=== PATIENT | female | born 1955 | race American Indian/Alaskan Native ===

== ENCOUNTER → 2018-02-25 11:05 | Outpatient (CLI) | payer OTHER, SELFPAY ==
--- NOTE | 2018-03-04 16:31 | PM.PFT.1 ---
Pulmonary Function Test Referral & Results Date Patient Seen: 02/25/18 Requesting provider: Kathleen Butler Indication: Asthma Results: The spirometry demonstrates an FVC of 3.09 L which is 97% of predicted. The FEV1 was measured at 2.31 L which is 95% of predicted. The FEV1/FVC ratio was 75 which is 97% of predicted. Following the administration of bronchodilator there was a 12% improvement in FEV1 and a 50% improvement in FEF 25-75%. Lung volumes show an SVC of 4.39 L which is 147% of predicted. The diffusing capacity was measured at 21.76 which is 89% of predicted. The maximum voluntary ventilation was normal Interpretation: This study demonstrates normal pulmonary function
== END ==
PROVIDERS: Visit Provider Family Medicine
DX: J45.909 Unspecified asthma, uncomplicated (principal)
CPT/HCPCS: 94010; 94060; 94726; 94729

== ENCOUNTER 2023-07-17 20:24 | Emergency (ER) | payer OTHER, SELFPAY ==
[2023-07-17 20:28] VITALS: BP 133/64; PULSE 81; RESP 18; TEMP 36.7; O2SAT 99; BMI 39.4
--- NOTE | 2023-07-17 20:30 | ED_ITS ---
HPI - Extremity Injury (Lower) General Chief Complaint: Extremity Injury, Lower Stated Complaint: fall Time Seen by Provider: 07/17/23 20:30 History of Present Illness HPI Narrative: 67-year-old female presents by EMS for right ankle pain and injury. Patient was climbing some steps when the steps gave out and she fell, twisting her ankle. She denies hitting her head or any other injury. Patient was placed in his supportive splint by EMS and transported. Related Data Home Medications Medication Instructions Recorded Confirmed ALBUTEROL SULFATE (Ventolin / 0 INH PRN ##0 05/15/07 Proventil) OMEPRAZOLE 10 mg PO Q DAY ##0 05/15/07 Allergies Allergy/AdvReac Type Severity Reaction Status Date / Time codeine Allergy Mild Vomiting Verified 07/17/23 20:33 Review of Systems Review of Systems Narrative: Negative except as noted above Exam Initial Vital Signs Initial Vital Signs: Vital Signs Temperature 98.1 F 07/17/23 20:28 Pulse Rate 81 07/17/23 20:28 Respiratory Rate 18 07/17/23 20:28 Blood Pressure 133/64 07/17/23 20:28 Pulse Oximetry 99 07/17/23 20:28 Oxygen Delivery Method Room Air 07/17/23 20:28 Const: Awake, alert, no acute distress, nontoxic appearing Cardiac: regular rate, regular rhythm RESP: unlabored, clear bilaterally, no wheezing GI: Atraumatic, soft, nontender, nondistended, no rebound, no guarding MSK: Swelling left lateral ankle, able to wiggle toes. Skin: Warm, Dry, intact, no rashes Neuro: AO x3, CN II-XII grossly intact, moves all extremities Course Orders Ordered: Discontinued Medications Ibuprofen (Ibuprofen 400 Mg Tablet) 400 mg PO NOW ONE Stop: 07/17/23 20:31 Last Admin: 07/17/23 20:35 Dose: 400 mg Documented By: VANDANA Oxycodone/Acetaminophen (Oxycodone/Acetaminophen 5/325 Tablet) 1 tab PO NOW ONE Stop: 07/17/23 20:31 Last Admin: 07/17/23 20:36 Dose: 1 tab Documented By: VANDANA Vital Signs Vital signs: Vital Signs - 8 hr 07/17/23 20:28 07/17/23 20:40 07/17/23 20:42 Temperature 98.1 F Pulse Rate 81 77 Pulse Rate [Right Dorsalis Pedis] 80 Respiratory Rate 18 Blood Pressure 133/64 Pulse Oximetry 99 99 Oxygen Delivery Method Room Air 07/17/23 21:00 Temperature Pulse Rate 80 Pulse Rate [Right Dorsalis Pedis] Respiratory Rate Blood Pressure Pulse Oximetry 100 Oxygen Delivery Method Room Air MDM - Extremity Injury (Lower) Differential Diagnosis Differential diagnosis: Likely ankle sprain and strain, acute internal derangement of knee and fracture of femur Imaging Data Extremity x-ray #1: Radiologist's Impression: PROCEDURE: XR ANKLE RT MIN 3V INDICATIONS: GLF, ANKLE PAIN/SWELLING LATERAL TECHNIQUE: 3 views of the ankle were acquired. COMPARISON: None. FINDINGS: Bones: No dislocations. Ankle mortise is normally aligned. No suspicious bony lesions. There is a transverse fracture partially visualized at the base of the 5th metatarsal bone, seen only on the lateral view. Soft tissues: No tibiotalar joint effusion. Achilles tendon appears normal. IMPRESSION: Acute transverse fracture at the base of the 5th metatarsal bone. Dictated by: Isauro Guaman M.D. on 07/17/2023 at 20:55 Approved by: Isauro Guaman M.D. on 07/17/2023 at 20:56 [facility] Narrative Medical decision making narrative: Ground level fall with right ankle injury. Neurovascularly intact. X-rays show a normal ankle joint, however patient does have fracture at base of 5th metatarsal concerning for possible Lange fracture. Patient placed in splint, given instructions to be nonweightbearing status. Given crutches. Patient has multiple family members at bedside who can help her at home. Pain medication sent to pharmacy of choice. Orthopedic referral provided. ED return precautions discussed at bedside. Patient expressed understanding of the plan and is in agreement at this time. All questions answered at the time of discharge. Discharge Plan Departure Patient Disposition: Home Clinical Impression: Fracture of fifth metatarsal bone of right foot Qualifiers: Encounter type: initial encounter Fracture type: closed Fracture alignment: nondisplaced Qualified Code(s): S92.354A - Nondisplaced fracture of fifth metatarsal bone, right foot, initial encounter for closed fracture Instructions: DI for Foot Fracture Activity Restrictions/Additional Instructions: Wear your splint at all times. Use crutches to get around, do not bear weight on your right foot unless otherwise specified by Orthopedic surgery. Take Tylenol and Motrin for pain, elevate your extremity above heart level whenever you were at rest to help prevent swelling. A short course of pain medications has been sent to your pharmacy Prescriptions: No Action ALBUTEROL SULFATE (Ventolin / Proventil) 0 INH PRN Qty: 0 OMEPRAZOLE 10 mg PO Q DAY Qty: 0 Referrals: Frank Martel MD [Physician] - Miscellaneous,MD Milagro [Primary Care Provider] - Stand Alone Forms: Patient Portal/API
[2023-07-17] MEDS: IBUPROFEN 400 MG TABLET PO (20:35)
[2023-07-17] MEDS: OXYCODONE/ACETAMINOPHEN 5/325 TABLET 1 TAB PO (20:36)
[2023-07-17 20:40] VITALS: PULSE 80
[2023-07-17 20:42] VITALS: PULSE 77; O2SAT 99
[2023-07-17 21:00] VITALS: PULSE 80; O2SAT 100
== END 2023-07-17 21:40 | disposition home or self-care (01) ==
PROVIDERS: Emergency Provider Emergency Medicine
DX: S92.354A Nondisplaced fracture of fifth metatarsal bone, right foot, initial encounter for closed fracture (principal); X50.1XXA Overexertion from prolonged static or awkward postures, initial encounter
CPT/HCPCS: 29515; 73610; 99283

== ENCOUNTER 2023-07-28 12:05 | Emergency (ER) | payer OTHER, SELFPAY ==
[2023-07-28] VITALS (15 sets, daily range): BP systolic 126–145; BP diastolic 55–65; PULSE 75–85; RESP 21–47; TEMP 36.9; O2SAT 93–100; BMI 42.5
--- NOTE | 2023-07-28 12:15 | DI.CT.S_ITS ---
PROCEDURE: CT STROKE INDICATIONS: Positive BE-FAST, Stroke symptoms TECHNIQUE: Noncontrast 4.5 mm thick angled axial sections acquired from the foramen magnum to the vertex, with coronal reformats. For radiation dose reduction, the following was used: automated exposure control, adjustment of mA and/or kV according to patient size. COMPARISON: None. FINDINGS: Image quality: Diagnostic. CSF spaces: Basal cisterns are patent. No extra-axial fluid collections. The ventricles are symmetric in size and shape. Brain: There is subtle hypodensity in the posterior aspect of left No intracranial bleeds or masses. There is cerebral volume loss for age. There is intracranial internal carotid artery atherosclerosis. Skull and face: Calvarium and visualized facial bones appear intact, without suspicious lesions. Sinuses: Visualized sinuses and mastoids are clear. IMPRESSION: Hypodensity in the left basal ganglia suspicious for late acute or subacute infarct. The result was discussed with Dr. mejia prior to dictation. This study fulfills neurological imaging criteria for inclusion or exclusion of acute stroke therapies based on available published neurological guidelines. Dictated by: Milla Ocampo M.D. on 07/28/2023 at 12:19 Approved by: Milla Ocampo M.D. on 07/28/2023 at 12:22
--- NOTE | 2023-07-28 12:15 | DI.RAD.S_ITS ---
PROCEDURE: XR CHEST 1V INDICATIONS: Possible stroke TECHNIQUE: One view of the chest was acquired. COMPARISON: None. FINDINGS: Surgical changes and devices: None. Lungs and pleura: Mild pulmonary vascular congestion is noted. No definite focal infiltrate. No pleural effusions or pneumothorax. Mediastinum: Tortuous thoracic aorta is seen. Heart size is enlarged. Bones and chest wall: No suspicious bony lesions. Overlying soft tissues appear unremarkable. IMPRESSION: Cardiomegaly and mild congestion. No definite focal infiltrate. No pleural effusion or pneumothorax. Dictated by: Steven Greenwood M.D. on 07/28/2023 at 13:05 Approved by: Steven Greenwood M.D. on 07/28/2023 at 13:10
--- NOTE | 2023-07-28 12:16 | DI.CT.S_ITS ---
PROCEDURE: CT ANGIO HEAD AND NECK INDICATIONS: stroke TECHNIQUE: After the administration of intravenous contrast, 1 mm thick sections acquired from the aortic arch through the [place] of [place]. 3-dimensional uxlulox-qajkuchbk-uxdsnsyrtd (MIP) and/or volume rendering reformats were acquired of the central intracranial vasculature and neck separately. For radiation dose reduction, the following was used: automated exposure control, adjustment of mA and/or kV according to patient size. COMPARISON: [facility], CT, CT STROKE, 07/28/2023, 12:01. FINDINGS: Image quality: Diagnostic. BRAIN: CSF spaces: Ventricles are normal in size and shape. Basal cisterns are patent. No extra-axial fluid collections. Brain: Loss of jennings-white differentiation suggested, right temporal lobe. However, on the CT that was obtained of the head immediately prior to the study, this was not suggested. The impression on this study may be simply secondary to differences in technique. Skull and face: Calvarium and facial bones appear intact, without suspicious lesions. Orbits appear normal. Sinuses: Sinuses and mastoids are clear. HEAD CT ANGIOGRAPHY: Anterior circulation: Intracranial internal carotid arteries are normal in size and flow. The flow within the paired anterior cerebral arteries is normal and symmetric. Left M1 segment embolus. There is also a paucity of distal right MCA branches suggesting probable distal emboli, as well. The anterior communicating artery is seen. No aneurysms are seen. Posterior circulation: Visualized portions of the vertebral arteries demonstrate normal caliber, and join to form a normal appearing basilar artery. Flow within the posterior cerebral arteries is normal and symmetric. No aneurysms are seen. NECK CT ANGIOGRAPHY: Carotid system: The great vessels demonstrate a conventional anatomy as they arise from the aortic arch. The origins of the common carotid arteries appear patent. The common carotid arteries demonstrate normal caliber and courses. The bifurcation regions are both widely patent. Bilateral mild, less than 50% proximal internal carotid artery stenosis. Posterior circulation: The origins of the vertebral arteries both appear widely patent. The more superior extracranial portions of both vertebral arteries also demonstrate normal courses and calibers. They join to form a normal appearing basilar artery. Soft tissues: Visualized neck soft tissues demonstrate no suspicious abnormalities. Bones: No suspicious bony lesions. Visualized cervical spine appears normally aligned. IMPRESSION: 1. Left M1 segment middle cerebral artery embolus. 2. Suggestion of possible distal left MCA emboli, as well, with diminished amount of vessels appreciated. 3. Question possible loss of jennings-white differentiation in the left temporal region, not definite. This is not suggested on the CT head was obtained immediately prior to this study. It may be secondary to differences in technique. No significant abnormality is seen within the arteries of the neck. Comment: Findings were discussed with Dr. Collazo on 07/28/2023 at 1324 hours PDT. She noted that [facility] was already on site, taking the patient for emergency transport to a tertiary stroke center. Any quantitative measurements of stenosis were performed using NASCET criteria. Dictated by: Sharad Alexander M.D. on 07/28/2023 at 13:22 Approved by: Sharad Alexander M.D. on 07/28/2023 at 13:32
--- NOTE | 2023-07-28 12:17 | ED.GENADULT ---
HPI - General Adult General Chief complaint: Neuro Symptoms/Deficit Stated complaint: Stroke Time Seen by Provider: 07/28/23 12:16 History of Present Illness HPI narrative: 67-year-old woman with a history of reflux and reportedly no other medical history. She and her daughter were at the [employer] at at an event, there was no alcohol involved, at 11:30 a.m. she was noted to slump over to her right side, was unable to hold herself up and not responding to comments or questions. She was transported to the emergency department and code stroke was called. She was taken immediately to the CT scanner. Her daughter notes that she does not have any medical problems, she is very strong and does not need to see a doctor, denies hypertension diabetes prior strokes or cardiac disease. Recently fell off a bleed urine has a broken right foot with her foot in a walking boot. Related Data Home Medications Medication Instructions Recorded Confirmed ALBUTEROL SULFATE (Ventolin / 0 INH PRN ##0 05/15/07 Proventil) OMEPRAZOLE 10 mg PO Q DAY ##0 05/15/07 Allergies Allergy/AdvReac Type Severity Reaction Status Date / Time codeine Allergy Mild Vomiting Verified 07/17/23 20:33 Review of Systems Review of Systems Narrative: Pertinent positive and negative findings as per HPI Exam Initial Vital Signs Initial Vital Signs: Vital Signs Pulse Rate 83 07/28/23 12:12 Blood Pressure 133/59 L 07/28/23 12:12 Pulse Oximetry 99 07/28/23 12:12 General: Minimally responsive, does seem to be protecting her airway HEENT: Moist mucous membranes, normal sclera with reactive pupils, Respiratory: Lungs are clear to auscultation, no wheezing no rales no rhonchi. Full and symmetrical air movement Cardiac: Regular rate and rhythm no murmurs no bruits Abdomen: Soft, nontender, good bowel tones, no flank pain Skin: Warm and dry, no rashes Neurologic: Unable to follow any commands, significant right-sided hemiparesis, NIH score is challenging but Extremities: Right foot is in a walking boot NIH Stroke Scale/Score (NIHSS) RESULT SUMMARY: 25 points NIH Stroke Scale INPUTS: 1A: Level of consciousness ?> 3 = Postures or unresponsive 1B: Ask month and age ?> 2 = 0 questions right 1C: 'Blink eyes' & 'squeeze hands' ?> 2 = Performs 0 tasks 2: Horizontal extraocular movements ?> 0 = Normal 3: Visual contreras ?> 0 = No visual loss 4: Facial palsy ?> 3 = Unilateral complete paralysis (upper/lower face) 5A: Left arm motor drift ?> 0 = No drift for 10 seconds 5B: Right arm motor drift ?> 4 = No movement 6A: Left leg motor drift ?> 2 = Drift, hits bed 6B: Right leg motor drift ?> 4 = No movement 7: Limb Ataxia ?> 0 = Does not understand 8: Sensation ?> 0 = Normal; no sensory loss 9: Language/aphasia ?> 3 = Coma/unresponsive 10: Dysarthria ?> 2 = Mute/anarthric 11: Extinction/inattention ?> 0 = No abnormality Course Orders Ordered: ED Orders 07/28/23 12:07 Complete Blood Count AUTO DIFF Stat Comprehensive Metabolic Panel Stat Magnesium Stat PTT Partial Thromboplastin Julian Stat Prothrombin Time INR Stat Troponin & CK Cardiac Panel Stat 07/28/23 12:15 CT Stroke Stat XR chest 1V Stat EKG-12 Lead Stat 07/28/23 12:16 CT angio head and neck Stat 07/28/23 12:57 Urinalysis and Microscopic Stat Urine Drug Screen, Rapid Stat Discontinued Medications Alteplase, Recombinant (Activase) 9 mg in 9 mls @ 540 mls/hr IV NOW ONE Stop: 07/28/23 12:43 Last Infusion: 07/28/23 12:56 Dose: Infused Documented By: Admin: 07/28/23 12:55 Dose: 540 mls/hr Documented By: CTS Alteplase, Recombinant (Activase) 81 mg in 81 mls @ 81 mls/hr IV NOW ONE Stop: 07/28/23 13:41 Last Infusion: 07/28/23 13:36 Dose: 81 mls/hr Documented By: Admin: 07/28/23 12:56 Dose: 81 mls/hr Documented By: IRENE Ondansetron HCl (Ondansetron 4 Mg/2 Ml Inj) 4 mg IV NOW PRN PRN Reason: Nausea And Vomiting Ondansetron HCl (Ondansetron 4 Mg Odt) 4 mg SL NOW PRN PRN Reason: Nausea And Vomiting Vital Signs Vital signs: Vital Signs - 8 hr 07/28/23 12:12 07/28/23 12:12 07/28/23 12:13 Temperature 98.4 F Pulse Rate 83 76 Respiratory Rate 22 Blood Pressure 133/59 L 133/59 L Pulse Oximetry 99 98 Oxygen Delivery Method Room Air 07/28/23 12:17 07/28/23 12:17 07/28/23 12:20 Temperature Pulse Rate 76 76 Respiratory Rate 39 H 42 H Blood Pressure 145/65 H Pulse Oximetry 98 93 Oxygen Delivery Method 07/28/23 12:25 07/28/23 12:30 07/28/23 12:35 Temperature Pulse Rate 75 76 75 Respiratory Rate 30 H 25 H 31 H Blood Pressure Pulse Oximetry 94 99 98 Oxygen Delivery Method 07/28/23 12:40 07/28/23 12:45 07/28/23 12:50 Temperature Pulse Rate 75 79 85 Respiratory Rate 25 H 30 H 47 H Blood Pressure Pulse Oximetry 99 99 100 Oxygen Delivery Method 07/28/23 12:55 07/28/23 13:00 07/28/23 13:01 Temperature Pulse Rate 82 83 Respiratory Rate 25 H 29 H Blood Pressure 127/56 L Pulse Oximetry 98 97 Oxygen Delivery Method 07/28/23 13:01 07/28/23 13:05 07/28/23 13:06 Temperature Pulse Rate 83 83 82 Respiratory Rate 40 H 23 21 Blood Pressure Pulse Oximetry 98 100 100 Oxygen Delivery Method 07/28/23 13:06 Temperature Pulse Rate Respiratory Rate Blood Pressure 126/55 L Pulse Oximetry Oxygen Delivery Method Medical Decision Making Lab Data 07/28/23 12:07 07/28/23 12:07 Labs: Lab Results 07/28/23 07/28/23 07/28/23 Range/Units 12:07 12:57 12:57 WBC 8.1 (4.5-11.0) X10^3/uL RBC 3.97 L (4.0-5.2) X10^6/uL Hgb 11.4 L (12.0-16.0) g/dL Hct 34.4 L (36-46) % MCV 86.6 (80-100) fL MCH 28.6 (26-34) PG MCHC 33.0 (30-36) % RDW 14.2 (11.6-14.8) % Plt Count 379 (150-400) X10^3/uL Neut % (Auto) 45.5 L (50-75) % Lymph % (Auto) 40.6 H (25-40) % Whitman % (Auto) 10.4 (3-14) % Eos % (Auto) 2.4 (2-4) % Baso % (Auto) 1.1 (0-2) % Neut # (Auto) 3700 (8688-1115) /uL Lymph # (Auto) 3300 (0239-5269) /uL Whitman # (Auto) 800 (0-900) /uL Eos # (Auto) 200 (0-450) /uL Baso # (Auto) 100 (0-100) /uL PT 10.6 (9.4-12.5) SECONDS INR 0.9 (0.9-1.3) APTT 34 (25.1-36.5) SECONDS Sodium 138 (137-145) mmol/L Potassium 4.1 (3.4-5.1) mmol/L Chloride 108 H (98-107) mmol/L Carbon Dioxide 25 (22-32) mmol/L BUN 28 H (7-17) mg/dL Creatinine 1.03 (0.52-1.04) mg/dL Estimated GFR 59 L (>60) mL/min BUN/Creatinine Ratio 27.2 H (6-22) Glucose 88 (80-110) mg/dL Calcium 8.8 (8.4-10.2) mg/dL Magnesium 2.2 (1.6-2.3) mg/dL Total Bilirubin 0.6 (0.2-1.3) mg/dL AST 52 H (14-36) IU/L ALT 45 H (<35) IU/L Alkaline Phosphatase 124 (38-126) U/L Total Creatine Kinase 56 (30-135) U/L Troponin I < 0.012 (0.01-0.034) ng/mL Total Protein 7.6 (6.3-8.2) g/dL Albumin 3.7 (3.5-5.0) g/dL Globulin 3.9 (1.7-4.1) g/dL Albumin/Globulin Ratio 0.9 L (1.0-2.8) Urine Color Yellow Urine Appearance Clear Urine pH 5.0 Normal (4.5-8.0) Ur Specific [place] 1.010 (1.000-1.035) Urine Protein Negative (Negative) Urine Glucose (UA) Negative (Negative) g/dL Urine Ketones Negative (NEGATIVE) Urine Occult Blood Negative (Negative) Urine Nitrate Negative (Negative) Urine Bilirubin Negative (NEGATIVE) Urine Urobilinogen 0.2 (0.2) E.U./dL Ur Leukocyte Esterase Negative (NEGATIVE) Urine RBC None seen (0-5/HPF) Urine WBC None seen (0-5/HPF) Ur Squamous Epith Cells None seen (0-5/HPF) Urine Bacteria None seen (None) Ur Culture Indicated? Cult not indicated Vol Urine Centrifuged 10ml (spun) U Opiates 300ng/mL cut Negative (Negative) Ur Oxycodone Screen Negative (Negative) Urine Methadone Screen Negative (Negative) Ur Barbiturates Screen Negative (Negative) U Tricyclic Antidepress Negative (Negative) Ur Phencyclidine Scrn Negative (Negative) Ur Amphetamines Screen Negative (Negative) U Methamphetamines Scrn Negative (Negative) Ur MDMA Scrn (Ecstasy) Negative (Negative) U Benzodiazepines Scrn Negative (Negative) Urine Cocaine Screen Negative (Negative) U Marijuana (THC) Screen Negative (Negative) Urine Specific [place] Normal (Normal) Ur Creatinine Normal (Normal) Point of Care Testing Glucose POC 89 Point of care testing: Point of Care Testing Glucose POC [address] scan - head: Radiologist's Impression: PROCEDURE: CT STROKE INDICATIONS: Positive BE-FAST, Stroke symptoms TECHNIQUE: Noncontrast 4.5 mm thick angled axial sections acquired from the foramen magnum to the vertex, with coronal reformats. For radiation dose reduction, the following was used: automated exposure control, adjustment of mA and/or kV according to patient size. COMPARISON: None. FINDINGS: Image quality: Diagnostic. CSF spaces: Basal cisterns are patent. No extra-axial fluid collections. The ventricles are symmetric in size and shape. Brain: There is subtle hypodensity in the posterior aspect of left No intracranial bleeds or masses. There is cerebral volume loss for age. There is intracranial internal carotid artery atherosclerosis. Skull and face: Calvarium and visualized facial bones appear intact, without suspicious lesions. Sinuses: Visualized sinuses and mastoids are clear. IMPRESSION: Hypodensity in the left basal ganglia suspicious for late acute or subacute infarct. The result was discussed with Dr. mejia prior to dictation. This study fulfills neurological imaging criteria for inclusion or exclusion of acute stroke therapies based on available published neurological guidelines. Dictated by: Milla Ocampo M.D. on 07/28/2023 at 12:19 MDM Narrative Medical decision making narrative: CC: Complete right-sided paralysis, onset 11 30 Complicating co-morbidities: Recent foot fracture, minimal interventions with physicians Data collected from: Daughter Differential considered: Stroke, sepsis Exam documented above, pertinent findings include: Patient is minimally arousable but still protecting her airway. Heart and lungs are benign. Belly is soft. Neurologic exam is challenging because so many steps are unable to be tested. This point she has complete right-sided hemiparesis and not responding to additional stimuli instructions or commands. NIH stroke initially is 25 points with multiple areas unable to be assessed Lab Test results independently reviewed as above. Pertinent findings: CBC shows mild anemia at 11.4 and 34.4 Chemistries show no acute kidney abnormality, slightly elevated AST and ALT consistent with presumed diagnosis of fatty liver Independently reviewed EKG: Sinus rhythm at a rate of 77 Imaging studies independently reviewed: Chest x-ray shows mild cardiomegaly and vascular congestion CT head as well as CTA of the head and neck imaging as above per radiology Consultations: [address] use reviewed with radiologist in real-time. He describes hypodensity in the left basal ganglia suspicious for late acute or subacute infarct 1236 Dr Carrasco, [facility] Neuro, given severity is symptoms and high mortality without intervention recommendation is to proceed with tPA. Air lift is activated by [facility] 1240 pharmacy notified, we will begin mixing tPA we will give his soon as it is mixed 1245 patient is respiratory effort is becoming less and less effective, she will be intubated. 1250 discussed tPA with family. Quoted 5-6% large bleed potential. Consent is obtained 1255 TPA started 120 Radiology call - + M1 Segment occlusion 133pm updated Dr Basilio/Danilo neurology of M1 occlusion, they are aware and planning for thrombectomy on arrival Treatments: TPA for acute stroke Consideration of Intubation for respiratory distress, on re-evaluation neurologic status is improved enough that we are going to hold on intubation for the time being Re-evaluations:1253 just prior to intubation, there moderate clinical change and improved respiratory effort as well as airway protection. Intubation is held for the time being 112pm patient is more responsive following some commands. Still has right-sided hemiparesis and now does seem to show clear signs of right-sided neglect. Repeat NIH: INPUTS: 1A: Level of consciousness ?> 2 = Requires repeated stimulation to arouse 1B: Ask month and age ?> 2 = 0 questions right 1C: 'Blink eyes' & 'squeeze hands' ?> 1 = Performs 1 task 2: Horizontal extraocular movements ?> 0 = Normal 3: Visual contreras ?> 0 = No visual loss 4: Facial palsy ?> 3 = Unilateral complete paralysis (upper/lower face) 5A: Left arm motor drift ?> 2 = Drift, hits bed 5B: Right arm motor drift ?> 4 = No movement 6A: Left leg motor drift ?> 2 = Drift, hits bed 6B: Right leg motor drift ?> 4 = No movement 7: Limb Ataxia ?> 1 = Ataxia in 1 Limb 8: Sensation ?> 0 = Normal; no sensory loss 9: Language/aphasia ?> 3 = Mute/global aphasia: no usable speech/auditory comprehension 10: Dysarthria ?> 2 = Mute/anarthric 11: Extinction/inattention ?> 2 = Profound cherelle-inattention (ex: does not recognize own hand) Discussion: 67-year-old woman with abrupt onset right side weakness decreased level of consciousness 11:30 onset. Decision to treat stroke with tPA made at 12:36 p.m. TPA is started at 12:55 p.m.. By 10 minutes after 1 she actually is becoming somewhat more responsive enough that she will try to move her left side when directed. Clearly has significant right-sided neglect and hemiparesis. She is currently protecting her airway and respiratory effort is becoming much more effective. Family is at bedside, questions are answered Critical Care Time Critical Care Time Critical Care Time: Yes Total Critical Care Time: 43 Attestation: Critical care time is separate from other billable procedures. There is a high probability of a significant, sudden or life-threatening deterioration that requires my full and direct attention, intervention and personal management. This critical care time includes consultation with family and other consulting doctors, review of records, and interpretation of data from labs, EKGs and imaging as well as managements of severe stroke, altered mental status, administration of tPA, coordination of care Discharge Plan Departure Patient Disposition: [facility] Clinical Impression: Acute respiratory distress Stroke Qualifiers: CVA mechanism: thrombosis Precerebral and cerebral artery: middle cerebral artery Laterality of affected vessel: left Qualified Code(s): I63.312 - Cerebral infarction due to thrombosis of left middle cerebral artery Prescriptions: No Action ALBUTEROL SULFATE (Ventolin / Proventil) 0 INH PRN Qty: 0 OMEPRAZOLE 10 mg PO Q DAY Qty: 0 Referrals: Miscellaneous,Doctor, MD [Primary Care Provider] -
[2023-07-28 12:21] LABS: Add Manual Diff / Slide Review NO; Basophils Absolute Auto 100 /uL (0-100); Basophils Percent Auto 1.1 % (0-2); Eosinophils Absolute Auto 200 /uL (0-450); Eosinophils Percent Auto 2.4 % (2-4); Hematocrit 34.4 % (36-46); Hemoglobin 11.4 g/dL (12.0-16.0); Lymphocytes Absolute Auto 3300 /uL (1100-4500); Lymphocytes Percent Auto 40.6 % (25-40); Mean Corpuscular Hemoglobin 28.6 PG (26-34); Mean Corpuscular Volume 86.6 fL (80-100); Monocytes Absolute Auto 800 /uL (0-900); Monocytes Percent Auto 10.4 % (3-14); Neutrophils Absolute Auto 3700 /uL (1500-7000); Neutrophils Percent Auto 45.5 % (50-75); Platelet Count 379 X10^3/uL (150-400); Red Blood Cell Count 3.97 X10^6/uL (4.0-5.2); Red Cell Distribution Width 14.2 % (11.6-14.8); White Blood Cell Count 8.1 X10^3/uL (4.5-11.0)
[2023-07-28 12:27] LABS: Alanine Aminotransferase 45 IU/L (<35); Albumin 3.7 g/dL (3.5-5.0); Albumin Globulin Ratio 0.9 (1.0-2.8); Alkaline Phosphatase 124 U/L (38-126); Aspartate Aminotransferase 52 IU/L (14-36); BUN Creatinine Ratio 27.2 (6-22); Bilirubin Total 0.6 mg/dL (0.2-1.3); Blood Urea Nitrogen 28 mg/dL (7-17); Calcium 8.8 mg/dL (8.4-10.2); Carbon Dioxide 25 mmol/L (22-32); Chloride 108 mmol/L (98-107); Creatine Kinase 56 U/L (30-135); Estimated Glomerular Filt Rate 59 mL/min (>60); Globulin 3.9 g/dL (1.7-4.1); Glucose 88 mg/dL (80-110); HEMOLYSIS < 15 (0-50); Magnesium 2.2 mg/dL (1.6-2.3); Potassium 4.1 mmol/L (3.4-5.1); Sodium 138 mmol/L (137-145); Total Protein 7.6 g/dL (6.3-8.2)
[2023-07-28 12:38] LABS: INR 0.9 (0.9-1.3); Prothrombin Time 10.6 SECONDS (9.4-12.5); Troponin I < 0.012 ng/mL (0.01-0.034)
[2023-07-28 12:40] LABS: PTT Partial Thromboplastin Tim 34 SECONDS (25.1-36.5)
[2023-07-28] MEDS: ALTEPLASE 9 MG/9 ML VIAL 540 MG IV (12:55)
[2023-07-28] MEDS: ALTEPLASE 81 MG/81 ML VIAL IV (12:56)
--- NOTE | 2023-07-28 13:02 | PC.NURSE ---
1206: Pt arrived to ED via EMS. family called while at an event at the [facility]. Pt with sudden onset R sided arm flaccidity, R sided droop, L deviated gaze, and unable to answer simple commands. Straight to CT on arrival. BG 89. Initial NIH with Dr Collazo at bedside 26. Family denies ETOH while at [facility] however she recently ate prior to arrival. Pt GCS 8. Order from Dr Collazo for Tpa after speaking to radiology. Pharmacy in room. Dr Collazo speaking with family and TPa consent signed by daughter, RAVEN. 1255: TPa bolus administered at 1255, Tpa gtt infusing. [facility] aware and en route. Prepping for intubation. 1309: Pt condition improving. Pt able to squeeze RN hand using L hand and able to open eyes when asked. R side continues with no movement, however wincing to pain when stimulated on the R. Dr Collazo at bedside and aware. Holding intubation at this time. [employer]ift ETA 1316
[2023-07-28 13:07] LABS: Appearance Urine UA CLEAR; Bilirubin Urine UA NEGATIVE (NEGATIVE); Color Urine UA YELLOW; Glucose Urine UA NEGATIVE (Negative); Ketones Urine UA NEGATIVE (NEGATIVE); Leukocyte Esterase Urine UA NEGATIVE (NEGATIVE); Nitrite Urine UA NEGATIVE (Negative); Occult Blood Urine UA NEGATIVE (Negative); Protein Urine UA NEGATIVE (Negative); Urobilinogen Urine UA 0.2 E.U./dL (0.2)
[2023-07-28 13:13] LABS: UR Morphine/Opiate cutoff 300 Negative (Negative); Ur Creatinine Normal (Normal); Ur Specific Gravity Normal (Normal); Urine Amphetamines Negative (Negative); Urine Barbiturates Negative (Negative); Urine Benzodiazepines Negative (Negative); Urine Cocaine Negative (Negative); Urine MDMA Negative (Negative); Urine Methadone Negative (Negative); Urine Methamphetamines Negative (Negative); Urine Oxycodone Negative (Negative); Urine Phencyclidine Negative (Negative); Urine Tetrahydrocannabinol Negative (Negative); Urine Tricyclic Antidepressant Negative (Negative); Urine pH Normal (Normal)
[2023-07-28 13:14] LABS: Bacteria Urine None Seen; Culture Indicated Urine Cult Not Indicated; RBC Urine None Seen (0-5/HPF); Squamous Epithelial Cell Urine None Seen (0-5/HPF); Urine Volume 10mL (spun); WBC Urine None Seen (0-5/HPF)
--- NOTE | 2023-07-28 13:27 | PC.NURSE ---
Report given to EMILY Maynard AL[facility].
--- NOTE | 2023-07-28 13:38 | PC.NURSE ---
Pt transferred with [facility] at this time.
--- NOTE | 2023-07-31 14:13 | PC.NURSE ---
Received phone call from [facility] requesting records from pt visit 07/16. Records faxed, image pushed.
== END 2023-07-28 13:38 | disposition short-term general hospital (02) ==
PROVIDERS: Emergency Provider Emergency Medicine
DX: R06.03 Acute respiratory distress (principal); I63.312 Cerebral infarction due to thrombosis of left middle cerebral artery; R29.725 NIHSS score 25
CPT/HCPCS: 70450; 70496; 70498; 71045; 80053; 80305; 81001; 82550; 82962; 83735; 84484; 85025; 85610; 85730; 93005; 96365; 99285; 99291; 99292; J2997; Q9967

== ENCOUNTER 2024-05-25 13:00 | Outpatient (RCR) | payer OTHER, SELFPAY ==
--- NOTE | 2024-04-19 16:25 | OT.OP.EVAL ---
Visit Care Team Role Provider Type Jensen Green PA-C Attending Provider Non-Staff Family Provider Primary Care Provider Referring Provider Specialty: Medical Address: [address] [place] [address], [facility] Email: Occupational Therapy Initial Evaluation OT Outpatient Adult Evaluation Start: 04/19/24 12:42 Freq: Status: Active Protocol: Document 04/19/24 12:49 AMS (Rec: 04/19/24 12:58 AMS [id number]) General Information - Adult Visit Number Plan of Care Dates 04/19/24 - 06/14/24 Insurance Information Healthcare Management; Jensen Green MD;*Max 45 PT/OT/[employer] PC[facility] 36 remaining Visit Start Time 11:30 Visit Stop Time 12:15 Treatment Setting Outpatient Care Note Type Initial Evaluation Identification Confirmed Yes Identification Confirmed By Self; Daughter Jennifer Goals Treatment Therapeutic activities. Object manipulation. Short Term Goals 1. Fabiana will demonstrate improved R UE AROM: 1a. 0-60 degrees R sh flexion . 1b. 0-60 degrees R sh abduction. 1c. 0-35 degrees R sh ER. Prison Goals 1. Fabiana will be modified independent with her home exercise program with the support of her family utilizing provided written and /or visual instructions as needed. Assessment/Plan Treatment Assessment Fabiana is 68 y.o.; she is L hand dominant; she was referred to outpatient secondary to suffering a stroke. Fabiana reports having the stroke August 06, 2022; she was hospitalized for 13 days and then d/c home; she had PT home health for 6 months and then transitioned to outpatient PT at [facility]. Medical history is significant for blood pressure , falls, and hearing problems. Fabiana's daughter (Jennifer) accompanied her to the evaluation. Fabiana reportedly resides with her 2 adult grandchildren (granddaughter and grandson are in their 20s) ; her daughter (Jennifer) resides across the street from her. She uses a scooter for community mobility; she uses a manual w/c for mobility within the home. She does have a cherelle-walker that she uses to walk with 1 x a day; she has a pedal artist's model that she uses 1 x a day for 5 minutes to exercise her legs while seated. Fabiana needs assist w/ donning shoes and UB/LB dressing; she needs assist w/ LB dressing post-toileting; she does bathe herself and completes g/h tasks relying on her L hand. For her R UE HEP, she uses stress balls, a wash cloth, coins, and completes circular movements. 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 Fabiana would like to be able to cook and drive herself. Whole Body Pain Assessment Grid completed; indication of 4 out of 10 on the pain scale relative to R UE; tyelnol rub is applied to Fabiana's shoulder 2 times a day for pain relief. Hand/Wrist Pain Assessment Grid completed; indication of 6 out of 10 on the pain scale relative to the volar surface of R wrist/palm /proximal thumb area. QuickDASH UE Outcome Measure Score = 77.50. (+) opposition to each digit pad R hand EO and EC w/ forearm supination and pronation with no errors. Seated active ROM goniometer measurements were obtained: 0 -50 degrees R sh flex; 0-40 degrees R sh ext; 0-50 degrees R sh abd; 0-25 degrees R sh ER; full R IR; full R elbow ext; 0-115 degrees R elbow flex. Dynamometer II Strength Testing Results with elbow in 90 degrees Flexion = R lean manager 19 .0# of force versus L lean manager 56. 0# of force. Lateral Dexter Pinch = R lateral pinch 7.0# of force versus L lateral pinch 16.0# of force. Tip Pinch = R tip pinch 3.0# of force versus L tip pinch 10.0# of force. 3 -Jaw Pinch = R 3-jaw pinch 5.5 # of force versus L 3-jaw pinch 14.5# of force. Object manipulation abilities: able to flip over 3 x 5-inch cards w/ R hand. Able to transfer bottle caps x 2 from TT to container w/ R hand. Unable to transfer coins or paperclips from TT to container w/ R hand w/ compensatory strategy as observed on this date. Able to stack x 6 checkers w/ R hand. Outpatient OT to expand upon HEP as needed and address R UE ROM, weakness, object manipulation abilities, to support Fabiana's ability to successfully participate in and complete meaningful activities in a variety of environments. Length of treatment (weeks) 8 Plan of Care Start Date 04/19/24 Plan of Care End Date 06/14/24 Treatment Frequency Once a Week Therapeutic Contents Active Range of Motion, Adaptive Equipment Education, Client Education,Functional Activities,Home Exercise Program,Joint Protection, Manual Therapy, Neurodevelopment Treatment, Neuromuscular Re-Education, Self-Care,Therapeutic Activities,Therapeutic Exercises,Modalities Modalities As Needed,As Prescribed Additional Types of Modalities Heat/Ice/Contrast Baths/ Ultrasound/Paraffin/E-stim
--- NOTE | 2024-04-26 12:48 | OT.OP.TRT ---
Visit Care Team Role Provider Type Jensen Green PA-C Attending Provider Non-Staff Family Provider Primary Care Provider Referring Provider Specialty: Medical Address: [address] [place] [address], [id number] Email: Occupational Therapy Treatment Note OT Outpatient Treatment Note - Adult Start: 04/19/24 12:42 Freq: Status: Active Protocol: Document 04/26/24 12:36 AMS (Rec: 04/26/24 12:48 AMS [id number]) OT Outpatient Adult Treatment Note Session Time Visit Start Time 11:35 Visit Stop Time 12:15 Visit Information Visit Number Plan of Care Dates 04/19/24 - 06/14/24 Insurance Information Healthcare Management; Jensen Green MD;*Max 45 PT/OT/PHYSICIAN PRACTICE ADMINISTRATOR PCY 36 remaining Setting Treatment Setting Outpatient Care Visit Type Note Type Treatment Note General Information General Information Fabiana is 68 y.o.; she is L hand dominant; she was referred to outpatient secondary to suffering a stroke. Fabiana reports having the stroke August 06, 2022; she was hospitalized for 13 days and then d/c home; she had PT home health for 6 months and then transitioned to outpatient PT at [facility]. Medical history is significant for blood pressure , falls, and hearing problems. Fabiana's daughter (Jennifer) accompanied her to the evaluation. Fabiana reportedly resides with her 2 adult grandchildren (granddaughter and grandson are in their 20s) ; her daughter (Jennifer) resides across the street from her. She uses a scooter for community mobility; she uses a manual w/c for mobility within the home. She does have a cherelle-walker that she uses to walk with 1 x a day; she has a pedal imagery intelligence that she uses 1 x a day for 5 minutes to exercise her legs while seated. Fabiana needs assist w/ donning shoes and UB/LB dressing; she needs assist w/ LB dressing post-toileting; she does bathe herself and completes g/h tasks relying on her L hand. For her R UE HEP, she uses stress balls, a wash cloth, coins, and completes circular movements. 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 Fabiana would like to be able to cook and drive herself. - Subjective Identification Type Name Observations Use of hemiwalker in L hand. Report of being able to get herself her own coffee (Keurig ); she reported that she was unsuccessful w/ using can pocket creaser; she reports that she is not cooking; she reports mainly watching television when at home. She reports getting up daily at 7:00 a.m.; however, has trouble sleeping and frequently wakes up in the middle of the night about 1:00 a.m. and ends up watching television for 2-3 hours until she can fall asleep again. Reports losing her in January of last year 2022. Her granddaughter and grandson help her within the home, including w/ putting up xmas decorations. *Note = Left hand dominant. - Objective Objective Measurements Please refer to below for progress towards meeting established OT goals: Short Term Goals 1. Fabiana will demonstrate improved R UE AROM: 1a. 0-60 degrees R sh flexion . 1b. 0-60 degrees R sh abduction. 1c. 0-35 degrees R sh ER. Nursing Home Goals 1. Fabiana will be modified independent with her home exercise program with the support of her family utilizing provided written and /or visual instructions as needed. - Exercises 2 Descriptor Seated cane UE exercises. Cane elbow flex/ext. 3 x 10. Cane sh flex/ext. 3 x 10. Cane rowing. Forwards direction. 3 x 10. Cane wrist ext/flex. 3 x 10. Cane trunk rotation. 2 x 10. 1 Descriptor UEB. Forwards direction. Seated. Height of UEB #2. Loss of operations business partner = 5 occasions; may want to trial velcro hand operations business partner . - Assessment Assessment of Improvement No c/o R sh pain/discomfort w/ use of UEB; frequent loss of operations business partner, sliding of operations business partner downwards/inferiorly; may want to trial velcro hand operations business partner to assist w/ maintenance of grasp . Quickly completed sets w/ cane w/ B UE exercises; rec trialing supine cane vs AROM exercises vs addition of wrist weight to cane w/ seated UE cane exercises. Outpatient OT to expand upon HEP as needed and address R UE ROM, weakness , object manipulation abilities, to support Fabiana's ability to successfully participate in and complete meaningful activities in a variety of environments. - Plan Therapy Recommendations Advance per Rehabilitation Protocol
--- NOTE | 2024-05-01 13:21 | OT.OP.TRT ---
Visit Care Team Role Provider Type Jensen Green PA-C Attending Provider Non-Staff Family Provider Primary Care Provider Referring Provider Specialty: Medical Address: [address] [place] [address], [id number] Email: Occupational Therapy Treatment Note OT Outpatient Treatment Note - Adult Start: 04/19/24 12:42 Freq: Status: Active Protocol: Document 05/01/24 13:16 AMS (Rec: 05/01/24 13:21 AMS [id number]) OT Outpatient Adult Treatment Note Setting Treatment Setting Outpatient Care Visit Type Note Type Administrative Note - Subjective Observations Fabiana did not show for her scheduled 1:00 p.m. appointment for OT; she was contacted via [facility]. She was notified of her next scheduled appointment and given the phone number for the outpatient clinic. Clinician to follow-up as needed. - - - -
--- NOTE | 2024-05-08 13:56 | OT.OP.TRT ---
Visit Care Team Role Provider Type Jensen Green PA-C Attending Provider Non-Staff Family Provider Primary Care Provider Referring Provider Specialty: Medical Address: [address] [place] [address], [id number] Email: Occupational Therapy Treatment Note OT Outpatient Treatment Note - Adult Start: 04/19/24 12:42 Freq: Status: Active Protocol: Document 05/08/24 13:49 AMS (Rec: 05/08/24 13:56 AMS [id number]) OT Outpatient Adult Treatment Note Session Time Visit Start Time 13:00 Visit Stop Time 13:40 Visit Information Visit Number Plan of Care Dates 04/19/24 - 06/14/24 Insurance Information Healthcare Management; Jensen Green MD;*Max 45 PT/OT/CONSULTANT INTERN PCY 36 remaining Setting Treatment Setting Outpatient Care Visit Type Note Type Treatment Note General Information General Information Fabiana is 68 y.o.; she is L hand dominant; she was referred to outpatient secondary to suffering a stroke. Fabiana reports having the stroke August 06, 2022; she was hospitalized for 13 days and then d/c home; she had PT home health for 6 months and then transitioned to outpatient PT at [facility]. Medical history is significant for blood pressure , falls, and hearing problems. Fabiana's daughter (Jennifer) accompanied her to the evaluation. Fabiana reportedly resides with her 2 adult grandchildren (granddaughter and grandson are in their 20s) ; her daughter (Jennifer) resides across the street from her. She uses a scooter for community mobility; she uses a manual w/c for mobility within the home. She does have a cherelle-walker that she uses to walk with 1 x a day; she has a pedal revenue accounting manager that she uses 1 x a day for 5 minutes to exercise her legs while seated. Fabiana needs assist w/ donning shoes and UB/LB dressing; she needs assist w/ LB dressing post-toileting; she does bathe herself and completes g/h tasks relying on her L hand. For her R UE HEP, she uses stress balls, a wash cloth, coins, and completes circular movements. 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 Fabiana would like to be able to cook and drive herself. - Subjective Observations No new concerns were reported. My daughter always tells me to 'wake up my leg'. 'I do this exercise; I grab my right arm and lift it up over my head throughout the day' per Fabiana. (+) rubbing of R arm/ humerus/distal to R shoulder. - Objective Objective Measurements Please refer to below for progress towards meeting established OT goals: Short Term Goals 1. Fabiana will demonstrate improved R UE AROM: 1a. 0-60 degrees R sh flexion . 1b. 0-60 degrees R sh abduction. 1c. 0-35 degrees R sh ER. Pumping Station Engineer Goals 1. Fabiana will be modified independent with her home exercise program with the support of her family utilizing provided written and /or visual instructions as needed. - Treatment 2 Descriptor Object manipulation. Washers. TT -> short dowel transfer. [place]. 2-colored disk. Flip -> TT -> board transfer. x 16 reps. 1 Descriptor R UE AROM w/ obj manipulation. Owens bag transfer. TT -> [place]. Stacking of small/medium cones . TT -> stack of cones. AAROM R sh flex. Sitting. AAROM R ER. Sitting. Exercises 2 Descriptor N/A 05/08/24 Seated cane UE exercises. Cane elbow flex/ext. 3 x 10. Cane sh flex/ext. 3 x 10. Cane rowing. Forwards direction. 3 x 10. Cane wrist ext/flex. 3 x 10. Cane trunk rotation. 2 x 10. 1 Descriptor N/A 05/08/24 UEB. Forwards direction. Seated. Height of UEB #2. Loss of physical therapy supervisor = 5 occasions; may want to trial velcro hand physical therapy supervisor . - Assessment Assessment of Improvement (+) use of radial side of hand ; did quite well w/ object manipulation; transferring of objects from TT to container/ location (e.g., washers -> dowel; 2-colored disks -> flip on TT -> transfer to [employer] board). Rec considering trial of arm pulleys as an option for UE ROM. Rec trialing supine cane vs AROM exercises vs addition of wrist weight to cane w/ seated UE cane exercises. Outpatient OT to expand upon HEP as needed and address R UE ROM, weakness, object manipulation abilities, to support Fabiana's ability to successfully participate in and complete meaningful activities in a variety of environments. Home Exercise Program 05/08/24= Rec consideration of ER w/ L hand assist in sitting and/or supine; rec hold of 20-30 sec completed daily x 1 rep or more as needed. - Plan Therapy Recommendations Advance per Rehabilitation Protocol
--- NOTE | 2024-05-18 13:53 | OT.OP.TRT ---
Visit Care Team Role Provider Type Jensen Green PA-C Attending Provider Non-Staff Family Provider Primary Care Provider Referring Provider Specialty: Medical Address: [address] [place] [address], [id number] Email: Occupational Therapy Treatment Note OT Outpatient Treatment Note - Adult Start: 04/19/24 12:42 Freq: Status: Active Protocol: Document 05/18/24 13:45 AMS (Rec: 05/18/24 13:53 AMS [id number]) OT Outpatient Adult Treatment Note Session Time Visit Start Time 13:00 Visit Stop Time 13:42 Visit Information Visit Number Plan of Care Dates 04/19/24 - 06/14/24 Insurance Information Healthcare Management; Jensen Green MD;*Max 45 PT/OT/PORTFOLIO MANAGER Combined PCY Setting Treatment Setting Outpatient Care Visit Type Note Type Treatment Note General Information General Information Fabiana is 68 y.o.; she is L hand dominant; she was referred to outpatient secondary to suffering a stroke. Fabiana reports having the stroke August 06, 2022; she was hospitalized for 13 days and then d/c home; she had PT home health for 6 months and then transitioned to outpatient PT at [facility]. Medical history is significant for blood pressure , falls, and hearing problems. Fabiana's daughter (Jennifer) accompanied her to the evaluation. Fabiana reportedly resides with her 2 adult grandchildren (granddaughter and grandson are in their 20s) ; her daughter (Jennifer) resides across the street from her. She uses a scooter for community mobility; she uses a manual w/c for mobility within the home. She does have a cherelle-walker that she uses to walk with 1 x a day; she has a pedal university partnership rep that she uses 1 x a day for 5 minutes to exercise her legs while seated. Fabiana needs assist w/ donning shoes and UB/LB dressing; she needs assist w/ LB dressing post-toileting; she does bathe herself and completes g/h tasks relying on her L hand. For her R UE HEP, she uses stress balls, a wash cloth, coins, and completes circular movements. 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 Fabiana would like to be able to cook and drive herself. - Subjective Observations No new concerns were reported. She is going to dinner w/ family for her granddaughter and great granddaughter's birthdays. - Objective Objective Measurements Please refer to below for progress towards meeting established OT goals: Short Term Goals 1. Fabiana will demonstrate improved R UE AROM: 1a. 0-60 degrees R sh flexion . 1b. 0-60 degrees R sh abduction. 1c. 0-35 degrees R sh ER. [facility] Goals 1. Fabiana will be modified independent with her home exercise program with the support of her family utilizing provided written and /or visual instructions as needed. - Treatment 2 Descriptor Object manipulation. Resistant clothespins. 1# - 6# of force resistance. Donning/ doffing from horizontal dowel. 05/18/24 Washers. TT -> short dowel transfer. [place]. 2-colored disk. Flip -> TT -> board transfer. x 16 reps. 1 Descriptor R UE AROM w/ obj manipulation. [place] bag transfer. TT -> [place]et. N/A 05/18/24 Stacking of small/medium cones . TT -> stack of cones. AAROM R sh flex. Sitting. AAROM R ER. Sitting. Exercises 2 Descriptor N/A 05/18/24 Seated cane UE exercises. Cane elbow flex/ext. 3 x 10. Cane sh flex/ext. 3 x 10. Cane rowing. Forwards direction. 3 x 10. Cane wrist ext/flex. 3 x 10. Cane trunk rotation. 2 x 10. 1 Descriptor N/A 05/18/24 UEB. Forwards direction. Seated. Seat position #12. Height of UEB #2. Loss of materials tech = 7 occasions; improved success w/ horizontal vs vertical materials tech of handle. - Assessment Assessment of Improvement (+) use of radial side of hand ; unable to manage the 8# of force resistant clothespins. Increased success w/ horizontal vs vertical materials tech of handle w/ R hand w/ use of UEB; velcro hand mitt is another option. Decreased active ER and sh abd w/ R object release w/ short toss and/or sliding of ozuna bags to R of body while seated in scooter at TT. Rec trialing supine cane vs AROM exercises vs addition of wrist weight to cane w/ seated UE cane exercises. Outpatient OT to expand upon HEP as needed and address R UE ROM, weakness, object manipulation abilities, to support Fabiana's ability to successfully participate in and complete meaningful activities in a variety of environments. Home Exercise Program 05/08/24= Rec consideration of ER w/ L hand assist in sitting and/or supine; rec hold of 20-30 sec completed daily x 1 rep or more as needed. - Plan Therapy Recommendations Advance per Rehabilitation Protocol
--- NOTE | 2024-05-25 14:02 | OT.OP.TRT ---
Visit Care Team Role Provider Type Jensen Green PA-C Attending Provider Non-Staff Family Provider Primary Care Provider Referring Provider Specialty: Medical Address: [address] [place] [address], [id number] Email: Occupational Therapy Treatment Note OT Outpatient Treatment Note - Adult Start: 04/19/24 12:42 Freq: Status: Active Protocol: Document 05/25/24 13:58 AMS (Rec: 05/25/24 14:02 AMS [id number]) OT Outpatient Adult Treatment Note Session Time Visit Start Time 13:00 Visit Stop Time 13:42 Visit Information Visit Number Plan of Care Dates 04/19/24 - 06/14/24 Insurance Information Healthcare Management; Jensen Green MD;*Max 45 PT/OT/SAMPLER AND TEST PREPARER Combined PCY Setting Treatment Setting Outpatient Care Visit Type Note Type Treatment Note General Information General Information Fabiana is 68 y.o.; she is L hand dominant; she was referred to outpatient secondary to suffering a stroke. Fabiana reports having the stroke August 06, 2022; she was hospitalized for 13 days and then d/c home; she had PT home health for 6 months and then transitioned to outpatient PT at [facility]. Medical history is significant for blood pressure , falls, and hearing problems. Fabiana's daughter (Jennifer) accompanied her to the evaluation. Fabiana reportedly resides with her 2 adult grandchildren (granddaughter and grandson are in their 20s) ; her daughter (Jennifer) resides across the street from her. She uses a scooter for community mobility; she uses a manual w/c for mobility within the home. She does have a cherelle-walker that she uses to walk with 1 x a day; she has a pedal stock tracer that she uses 1 x a day for 5 minutes to exercise her legs while seated. Fabiana needs assist w/ donning shoes and UB/LB dressing; she needs assist w/ LB dressing post-toileting; she does bathe herself and completes g/h tasks relying on her L hand. For her R UE HEP, she uses stress balls, a wash cloth, coins, and completes circular movements. 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 Fabiana would like to be able to cook and drive herself. - Subjective Observations No new concerns were reported. Accompanied by her granddaughter. (+) use of scooter for mobility. - Objective Objective Measurements Please refer to below for progress towards meeting established OT goals: Short Term Goals 1. Fabiana will demonstrate improved R UE AROM: 1a. 0-60 degrees R sh flexion . 1b. 0-60 degrees R sh abduction. 1c. 0-35 degrees R sh ER. Jail Goals 1. Fabiana will be modified independent with her home exercise program with the support of her family utilizing provided written and /or visual instructions as needed. - Treatment 2 Descriptor Object manipulation. Resistant clothespins. 1# - 8# of force resistance. [place] from horizontal dowel. Small and medium sized rings. Placement of lowest rung; use of stool to reduce height of surface. 05/18/24 Washers. TT -> short dowel transfer. [place]. 2-colored disk. Flip -> TT -> board transfer. x 16 reps. 1 Descriptor R UE AROM w/ obj manipulation. Owens bag transfer. Seated at mat table. R side of space -> sh flexion/infront of body. R -> cross body. [employer] at floor level. N/A 05/18/24 Stacking of small/medium cones . TT -> stack of cones. AAROM R sh flex. Sitting. AAROM R ER. Sitting. Exercises 2 Descriptor N/A 05/18/24 Seated cane UE exercises. Cane elbow flex/ext. 3 x 10. Cane sh flex/ext. 3 x 10. Cane rowing. Forwards direction. 3 x 10. Cane wrist ext/flex. 3 x 10. Cane trunk rotation. 2 x 10. 1 Descriptor UEB. Forwards direction. Seated. Seat position #15. Height of UEB #2. Loss of petroleum refining firer = 7 occasions; (+) use of horizontal vs vertical petroleum refining firer of handle. - Assessment Assessment of Improvement (+) use of radial side of hand . Increased success w/ horizontal vs vertical petroleum refining firer of handle w/ R hand w/ use of UEB; velcro hand mitt is another option; may want to consider pulleys as well. Decreased active ER and sh abd w/ R object release. Rec trialing supine cane vs AROM exercises vs addition of wrist weight to cane w/ seated UE cane exercises. Outpatient OT to expand upon HEP as needed and address R UE ROM, weakness, object manipulation abilities, to support Fabiana's ability to successfully participate in and complete meaningful activities in a variety of environments. Home Exercise Program 05/08/24= Rec consideration of ER w/ L hand assist in sitting and/or supine; rec hold of 20-30 sec completed daily x 1 rep or more as needed. - Plan Therapy Recommendations Advance per Rehabilitation Protocol
--- NOTE | 2024-06-21 10:37 | OT.OP.DC ---
Visit Care Team Role Provider Type Jensen Green PA-C Attending Provider Non-Staff Family Provider Primary Care Provider Referring Provider Address: [address] [place] [address], [id number] Email: OT Outpatient OT Outpatient Adult Evaluation Start: 04/19/24 12:42 Freq: Status: Active Protocol: Document 04/19/24 12:49 AMS (Rec: 04/19/24 12:58 AMS [id number]) General Information - Adult Visit Information Visit Number Plan of Care Dates 04/19/24 - 06/14/24 Insurance Information Healthcare Management; Jensen Green MD;*Max 45 PT/OT/LABEL REMOVER PCY 36 remaining Session Time Visit Start Time 11:30 Visit Stop Time 12:15 Setting Treatment Setting Outpatient Care Visit Type Note Type Initial Evaluation Identification Identification Confirmed Yes Identification Confirmed By Self; Daughter Jennifer Goals Treatment Treatment Therapeutic activities. Object manipulation. Short Term Goals Short Term Goals 1. Fabiana will demonstrate improved R UE AROM: 1a. 0-60 degrees R sh flexion . 1b. 0-60 degrees R sh abduction. 1c. 0-35 degrees R sh ER. Product Marketing Executive Goals Product Marketing Executive Goals 1. Fabiana will be modified independent with her home exercise program with the support of her family utilizing provided written and /or visual instructions as needed. Assessment/Plan Assessment Treatment Assessment Fabiana is 68 y.o.; she is L hand dominant; she was referred to outpatient secondary to suffering a stroke. Fabiana reports having the stroke August 06, 2022; she was hospitalized for 13 days and then d/c home; she had PT home health for 6 months and then transitioned to outpatient PT at [facility]. Medical history is significant for blood pressure , falls, and hearing problems. Fabiana's daughter (Jennifer) accompanied her to the evaluation. Fabiana reportedly resides with her 2 adult grandchildren (granddaughter and grandson are in their 20s) ; her daughter (Jennifer) resides across the street from her. She uses a scooter for community mobility; she uses a manual w/c for mobility within the home. She does have a cherelle-walker that she uses to walk with 1 x a day; she has a pedal adult literacy teacher that she uses 1 x a day for 5 minutes to exercise her legs while seated. Fabiana needs assist w/ donning shoes and UB/LB dressing; she needs assist w/ LB dressing post-toileting; she does bathe herself and completes g/h tasks relying on her L hand. For her R UE HEP, she uses stress balls, a wash cloth, coins, and completes circular movements. 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 Fabiana would like to be able to cook and drive herself. Whole Body Pain Assessment Grid completed; indication of 4 out of 10 on the pain scale relative to R UE; tyelnol rub is applied to Fabiana's shoulder 2 times a day for pain relief. Hand/Wrist Pain Assessment Grid completed; indication of 6 out of 10 on the pain scale relative to the volar surface of R wrist/palm /proximal thumb area. QuickDASH UE Outcome Measure Score = 77.50. (+) opposition to each digit pad R hand EO and EC w/ forearm supination and pronation with no errors. Seated active ROM goniometer measurements were obtained: 0 -50 degrees R sh flex; 0-40 degrees R sh ext; 0-50 degrees R sh abd; 0-25 degrees R sh ER; full R IR; full R elbow ext; 0-115 degrees R elbow flex. Dynamometer II Strength Testing Results with elbow in 90 degrees Flexion = R swimming pool attendant 19 .0# of force versus L swimming pool attendant 56. 0# of force. Lateral Dexter Pinch = R lateral pinch 7.0# of force versus L lateral pinch 16.0# of force. Tip Pinch = R tip pinch 3.0# of force versus L tip pinch 10.0# of force. 3 -Jaw Pinch = R 3-jaw pinch 5.5 # of force versus L 3-jaw pinch 14.5# of force. Object manipulation abilities: able to flip over 3 x 5-inch cards w/ R hand. Able to transfer bottle caps x 2 from TT to container w/ R hand. Unable to transfer coins or paperclips from TT to container w/ R hand w/ compensatory strategy as observed on this date. Able to stack x 6 checkers w/ R hand. Outpatient OT to expand upon HEP as needed and address R UE ROM, weakness, object manipulation abilities, to support Fabiana's ability to successfully participate in and complete meaningful activities in a variety of environments. Plan Length of treatment (weeks) 8 Plan of Care Start Date 04/19/24 Plan of Care End Date 06/14/24 Treatment Frequency Once a Week Therapeutic Contents Active Range of Motion, Adaptive Equipment Education, Client Education,Functional Activities,Home Exercise Program,Joint Protection, Manual Therapy, Neurodevelopment Treatment, Neuromuscular Re-Education, Self-Care,Therapeutic Activities,Therapeutic Exercises,Modalities Modalities As Needed,As Prescribed Additional Types of Modalities Heat/Ice/Contrast Baths/ Ultrasound/Paraffin/E-stim Functional Wrist/Hand Scan Hand Side Sensory Assessment Sensory Profile2 OT Outpatient Treatment Note - Adult Start: 04/19/24 12:42 Freq: Status: Active Protocol: Document 06/21/24 10:35 AMS (Rec: 06/21/24 10:37 AMS [id number]) OT Outpatient Adult Treatment Note Visit Information Visit Number Plan of Care Dates 04/19/24 - 06/14/24 Insurance Information Healthcare Management; Jensen Green MD;*Max 45 PT/OT/LABEL REMOVER Combined PCY Setting Treatment Setting Outpatient Care Visit Type Note Type Discharge Summary - Subjective Observations Fabiana has not been seen in the outpatient setting for OT since 05/25/24 and outpatient OT POC 06/14/24. Thus, recommend d/c from outpatient OT at this time and clinician to re-evaluate as deemed appropriate by PCP w/ receipt of new referral. - Objective Objective Measurements Please refer to below for progress towards meeting established OT goals: Short Term Goals D/C ALL GOALS 06/21/24 1. Fabiana will demonstrate improved R UE AROM: 1a. 0-60 degrees R sh flexion . 1b. 0-60 degrees R sh abduction. 1c. 0-35 degrees R sh ER. Intermediate Goals D/C ALL GOALS 06/21/24 1. Fabiana will be modified independent with her home exercise program with the support of her family utilizing provided written and /or visual instructions as needed. - - Assessment Assessment of Improvement Fabiana has not been seen in the outpatient setting for OT since 05/25/24 and outpatient OT POC 06/14/24. Thus, recommend d/c from outpatient OT at this time and clinician to re-evaluate as deemed appropriate by PCP w/ receipt of new referral. - Plan Therapy Recommendations Discharge from Occupational Therapy
== END 2024-06-22 13:02 | disposition home or self-care (01) ==
LOC: OT 13:00
PROVIDERS: Family Provider Physician Assistant; PCP Physician Assistant; Referring Provider Physician Assistant; Visit Provider Physician Assistant
DX: Z86.73 Personal history of transient ischemic attack (TIA), and cerebral infarction without residual deficits (principal); R27.8 Other lack of coordination; R53.1 Weakness
CPT/HCPCS: 97110; 97165; 97530

== ENCOUNTER 2024-06-08 14:32 | Emergency (ER) | payer OTHER, SELFPAY ==
[2024-06-08 14:37] VITALS: BP 152/70; PULSE 70; RESP 16; TEMP 35.6; O2SAT 94; BMI 39.4
--- NOTE | 2024-06-08 14:39 | DI.US.S_ITS ---
PROCEDURE: US PERIPH VENOUS LOW EXTREM RT INDICATIONS: pain, swelling right lower leg r/o blood clot TECHNIQUE: Real-time imaging, as well as color and pulse Doppler interrogation, were performed of the lower extremity deep veins from the inguinal ligament to the popliteal fossa, with documentation of the visualized calf veins. COMPARISON: None. FINDINGS: The common femoral, femoral, popliteal, and the visualized calf veins are normally compressible, and free of intraluminal thrombus. Color and pulse Doppler demonstrate normal phasic intraluminal flow. There is normal augmentation response to distal compression maneuver. IMPRESSION: No evidence of DVT in visualized right lower extremity veins. Dictated by: Steven Greenwood M.D. on 06/08/2024 at 15:28 Approved by: Steven Greenwood M.D. on 06/08/2024 at 15:28
--- NOTE | 2024-06-08 15:36 | ED_ITS ---
HPI - Extremity Problem General Chief complaint: Extremity Problem,Nontraumatic Stated complaint: poss blood clot R let Time Seen by Provider: 06/08/24 15:35 Source: patient Mode of arrival: Wheelchair History of Present Illness HPI Narrative: Patient is a 68-year-old female history of stroke with right-sided deficits presents today with right leg swelling for 1 week. She sometimes hit her right leg with things because it does not work as well after her stroke. She has no significant calf pain. She was able to move her foot easily. No significant shortness of breath left leg is not swollen Related Data Home Medications Medication Instructions Recorded Confirmed ALBUTEROL SULFATE (Ventolin / 0 INH PRN ##0 05/15/07 Proventil) OMEPRAZOLE 10 mg PO Q DAY ##0 05/15/07 Allergies Allergy/AdvReac Type Severity Reaction Status Date / Time codeine Allergy Mild Vomiting Verified 06/08/24 14:39 Patient History Social History Smoking Status: Never smoker Smoking Status: Never smoker Exam Initial Vital Signs Initial Vital Signs: Vital Signs Temperature 96.1 F L 06/08/24 14:37 Pulse Rate 70 06/08/24 14:37 Respiratory Rate 16 06/08/24 14:37 Blood Pressure 152/70 H 06/08/24 14:37 Pulse Oximetry 94 06/08/24 14:37 Oxygen Delivery Method Room Air 06/08/24 14:37 GENERAL: Well-appearing, well-nourished and in no acute distress. CARDIOVASCULAR: peripheral pulses in tact, cap refill <2 sec RESPIRATORY: No respiratory distress, speaks in full sentences without difficulty EXTREMITIES: Normal range of motion, no clubbing or edema. Neurovascularly intact Right leg swelling inferior the knee she is some mild contusion and bruising NEUROLOGICAL: Cranial nerves II through XII grossly intact. Normal gait and speech. SKIN: Warm, dry, no petechiae, no rashes or lesions. Course Orders Ordered: ED Orders 06/08/24 14:39 US periph venous low extrem rt Stat Vital Signs Vital signs: Vital Signs - 8 hr 06/08/24 14:37 Temperature 96.1 F L Pulse Rate 70 Respiratory Rate 16 Blood Pressure 152/70 H Pulse Oximetry 94 Oxygen Delivery Method Room Air MDM - Extremity (Nontraumatic) Imaging Data US - DVT: Radiologist's Impression: PROCEDURE: US PERIPH VENOUS LOW EXTREM RT INDICATIONS: pain, swelling right lower leg r/o blood clot TECHNIQUE: Real-time imaging, as well as color and pulse Doppler interrogation, were performed of the lower extremity deep veins from the inguinal ligament to the popliteal fossa, with documentation of the visualized calf veins. COMPARISON: None. FINDINGS: The common femoral, femoral, popliteal, and the visualized calf veins are normally compressible, and free of intraluminal thrombus. Color and pulse Dop pler demonstrate normal phasic intraluminal flow. There is normal augmentation response to distal compression maneuver. IMPRESSION: No evidence of DVT in visualized right lower extremity veins. Dictated by: Steven Greenwood M.D. on 06/08/2024 at 15:28 Approved by: Steven Greenwood M.D. on 06/08/2024 at 15:28 [facility] Narrative Medical decision making narrative: Patient is 68-year-old female presenting today with right leg swelling ongoing for 1 week. She does have some mild bruising she is neurovascularly intact. No significant pain posterior calf. Ultrasound does not show any evidence of DVT. At this time it maybe related to injury rather than DVT Discharge Plan Departure Patient Disposition: Home Clinical Impression: Swelling Instructions: DI for Peripheral Edema-Unilateral Activity Restrictions/Additional Instructions: *You have been diagnosed with right leg swelling *What to do: I recommend that you wear compression socks elevate your legs this time there is no evidence of blood clot *Continue to take medications as directed *Follow up with your primary care provider in 2-3 days or call [phone] *Return to ER if you should have increasing swelling pain redness or any new, worsening or concerning symptoms Prescriptions: No Action ALBUTEROL SULFATE (Ventolin / Proventil) 0 INH PRN Qty: 0 OMEPRAZOLE 10 mg PO Q DAY Qty: 0 Referrals: Jensen Green PA-C [Primary Care Provider] - Stand Alone Forms: Patient Portal/API/Survey
== END 2024-06-08 16:07 | disposition home or self-care (01) ==
PROVIDERS: Emergency Provider Emergency Medicine; Family Provider Physician Assistant; PCP Physician Assistant
DX: R60.0 Localized edema (principal)
CPT/HCPCS: 93971; 99283

== ENCOUNTER → 2024-07-04 17:12 | Outpatient (CLI) | payer OTHER, SELFPAY ==
--- NOTE | 2024-07-04 17:14 | DI.MRI.S_ITS ---
PROCEDURE: MR HEAD/BRAIN WO CON INDICATIONS: ACUTE ISCHEMIC LEFT MCA STROKE,RIGHT HEMIPARESIS TECHNIQUE: Non-contrast axial T1 spin echo, axial T2 fast spin echo, sagittal and axial FLAIR, coronal T2 fast spin echo, axial gradient echo, axial diffusion and ADC through the brain. COMPARISON: None. FINDINGS: Image quality: Excellent. CSF spaces: Ventricles appear symmetric in size and shape. Basal cisterns are patent. No extra-axial fluid collections. Brain: No intracranial bleeds or mass effects. There is cerebral volume loss for age. There are periventricular and deep white matter chronic small vessel ischemic changes. Brainstem appears normal. Diffusion-weighted images show no acute infarct. Old left basal ganglia infarct. Normal intravascular flow voids are present. Skull and face: Calvarial bone marrow is normal in signal. Orbits are normal. Sinuses: Sinuses and mastoids are clear. IMPRESSION: 1. No acute intracranial process. No acute ischemia. 2. Moderate atrophy and chronic microvascular ischemic changes. Dictated by: Alisia Paulino M.D. on 07/05/2024 at 16:56 Approved by: Alisia Paulino M.D. on 07/05/2024 at 16:59
== END ==
PROVIDERS: Family Provider Physician Assistant; PCP Physician Assistant; Referring Provider Physician Assistant; Visit Provider Physician Assistant
DX: I63.512 Cerebral infarction due to unspecified occlusion or stenosis of left middle cerebral artery (principal); G81.91 Hemiplegia, unspecified affecting right dominant side
CPT/HCPCS: 70551